=== PATIENT | male | born 1965 | race Hispanic/Latino ===

== ENCOUNTER 2018-02-26 13:00 | Emergency (ER) | payer MEDICARE, MEDICAID ==
[2018-02-26 13:12] VITALS: BMI 25.7
--- NOTE | 2018-02-26 13:29 | ED PDOC ---
Arrival/HPI - General Historian: Patient - General Chief Complaint: Psychiatric Evaluation Time Seen by Provider: 02/26/18 13:28 - History of Present Illness Narrative History of Present Illness (Text): 02/26/18 13:29 52 y/o male, pmh including multiple sclerosis, psychiatric history of drug abuse , penicillin allergy, c/o needs to talk to psychiatriast x 1 day. Pt. stated that he is really stress out, call the psychiatric clinic, told him to come to the ER for psychiatric evaluation. Pt. doesn't wanna give full HPI as I am not a psychiatrist. Pt. has no nausea or vomiting, no numbness or tingling, no rash , no abdominal or chest pain, no pelvic pain, no night sweat, no dizziness, no change in vision, no homicidal or suicidal dieation, no auditory or visual hallucination. 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 - Renal Hx Renal Disorder: No - Endocrine/Metabolic Hx Endocrine Disorders: No - Hematological/Oncological Hx Blood Disorders: No - Integumentary Hx Dermatological Disorder: No - Musculoskeletal/Rheumatological Hx Back Pain: Yes - Gastrointestinal Hx Gastrointestinal Disorders: No - Genitourinary/Gynecological Hx Genitourinary Disorders: No - Psychiatric Hx Anxiety: Yes Hx Substance Use: No - Anesthesia Hx Anesthesia: No Family/Social History - Physician Review Nursing Documentation Reviewed: Yes Family/Social History: Unknown Family HX Smoking Status: Never Smoked Hx Alcohol Use: No Hx Substance Use: No Allergies/Home Meds Allergies/Adverse Reactions: Allergies penicillin Allergy (Severe, Uncoded 12/09/17 15:11) ANAPHYLAXIS Patients states " Dies" salt Allergy (Unknown, Uncoded 12/09/17 15:11) exacerbation Exacerbation of MS Home Medications: Home Meds Medication Instructions Recorded Confirmed Lorazepam [Ativan] 0.5 tab PO DAILY PRN 10/21/15 02/26/18 Methadone [Methadone] 3 tab PO DAILY 10/21/15 02/26/18 Multivit-Min/Folic Acid/Biotin 1 each PO DAILY 10/30/16 02/26/18 [Women Multivit W-Biotin Gummy] Cholecalciferol [Vitamin D] 1,000 unit PO DAILY 10/07/17 02/26/18 Review of Systems - Review of Systems Constitutional: absent: Fatigue, Fevers Eyes: absent: Vision Changes ENT: absent: Hearing Changes Respiratory: absent: SOB, Cough Cardiovascular: absent: Chest Pain Gastrointestinal: absent: Abdominal Pain, Nausea, Vomiting Skin: absent: Rash, Pruritis Neurological: absent: Headache, Dizziness Psychiatric: absent: Anxiety, Depression, Suicidal Ideation Physical Exam - Systems Exam Head: Present: Atraumatic, Normocephalic Pupils: Present: PERRL Extroacular Muscles: Present: EOMI Conjunctiva: Present: Normal Mouth: Present: Moist Mucous Membranes Neck: Present: Normal Range of Motion Respiratory/Chest: Present: Clear to Auscultation, Good Air Exchange. No: Respiratory Distress, Accessory Muscle Use Cardiovascular: Present: Regular Rate and Rhythm, Normal S1, S2. No: Murmurs Abdomen: No: Tenderness, Distention, Peritoneal Signs Back: Present: Normal Inspection Upper Extremity: Present: Normal Inspection. No: Cyanosis, Edema Lower Extremity: Present: Normal Inspection. No: Edema Neurological: Present: GCS=15, CN II-XII Intact, Speech Normal Skin: Present: Warm, Dry, Normal Color. No: Rashes Psychiatric: Present: Alert, Oriented x 3, Normal Insight, Normal Concentration Vital Signs Temp Pulse Resp BP Pulse Ox 02/26/18 15:01 98.0 F 86 19 129/70 97 Medical Decision Making ED Course and Treatment: 02/26/18 13:31 -labs/ua/uds -ekg -cxr -REINA Durant paged and notified to see the patient -Observe and reassess 02/26/18 14:42 -Pt. refused lab works and radiology study as he has no medical complaints. -Pt. evaluated by the REINA Durant and discussed with DR. Millicent Street, stated that the patient is clear from the psychiatric point of view. Pt. has no medical complaints. -Pt. doesn't wanna wait for the discharge paper and declined medical care, discussed with dr. garza about the case. (Otis Deleon) - PA / FAMILY DENTIST / Resident Statement MD/DO has reviewed & agrees with the documentation as recorded. Disposition/Present on Arrival - Present on Arrival Any Indicators Present on Arrival: No History of DVT/PE: No History of Uncontrolled Diabetes: No Urinary Catheter: No History of Decub. Ulcer: No History Surgical Site Infection Following: None - Disposition Have Diagnosis and Disposition been Completed?: Yes Disposition Time: 14:12 Patient Plan: Discharge - Disposition Diagnosis: Psychiatric care, Noncompliance Disposition: HOME/ ROUTINE Condition: GOOD Additional Instructions: Please follow up with your own pmd and psychiatrist within 2 days. Return to the ER for any new or worsening signs or symptoms. Referrals: Tenzin Moss MD [Primary Care Provider] - Follow up with primary [facility] [Outside] - Follow up with primary [facility] [Outside] - Follow up with primary Forms: [facility] (Mauritanian)
[2018-02-26 15:02] VITALS: PULSE 86; RESP 19; O2SAT 97
[2018-02-26 16:07] VITALS: BP 129/70; TEMP 98
== END 2018-02-26 15:02 | disposition home or self-care (01) ==
LOC: ED 13:00
DX: Z00.8 Encounter for other general examination (principal); Z91.19 Patient's noncompliance with other medical treatment and regimen